=== PATIENT | female | born 1965 | race Caucasian/White ===

== ENCOUNTER 2019-05-05 14:01 | Emergency (ER) | payer OTHER, MEDICARE ==
[~2019-05-05] VITALS: Ht 157.5 cm; Wt 58.1 kg
[2019-05-05 14:10] VITALS: BP 125/84
[2019-05-05] MEDS ORDERED: ZESTORETIC 20-1 EAC3 PO (14:13)
[2019-05-05] MEDS ORDERED: COZAAR 25 MG TA25 M2 PO (14:34)
[2019-05-05] MEDS ORDERED: HYDROCHLOROTH12.5 M1 PO (14:35)
== END 2019-05-05 14:52 ==
LOC: M.ERS 14:01
DX: I10 Essential (primary) hypertension (principal); Z76.0 Encounter for issue of repeat prescription; F17.210 Nicotine dependence, cigarettes, uncomplicated; Z90.710 Acquired absence of both cervix and uterus; Z88.5 Allergy status to narcotic agent; Z88.6 Allergy status to analgesic agent